=== PATIENT | male | born 1970 | race Caucasian/White ===

== ENCOUNTER 2016-07-02 08:11 | Emergency (ER) | payer MEDICAID ==
[~2016-07-02] VITALS: Ht 177.8 cm; Wt 83.0 kg
[~2016-07-02 08:11] MED LIST: ALBUPOW26; FLUT250M2; QUET200T30 PO; RISPERIDOL
[2016-07-02] MEDS ORDERED: SODIUM CHLORIDE 0.9% 1,000 ML IV ONE (08:26)
[2016-07-02] MEDS ORDERED: ALBUTEROL SULF 2.5 MG/0.5ML(0.5%) NEB SOLN NEB ONE (08:30)
[2016-07-02] MEDS ORDERED: methylPREDNISolone SOD SUCC 125 MG/2 ML VL IV ONE (08:30)
[2016-07-02] MEDS ORDERED: IPRATROPIUM BROM 0.5 MG/2.5ML INH SOL NEB ONE (08:30)
[2016-07-02 09:12] LABS: BUN/Creatinine Ratio 13.8; Calcium 9.4 mg/dL (8.5-10.1); Magnesium 2.1 mg/dL (1.6-2.6); Potassium 4.2 mmol/L (3.5-5.1)
[2016-07-02 09:37] LABS: Basophils # (auto) 0.1 uL; Eosinophils # (auto) 0.7 uL; Eosinophils % (auto) 9.3 % (0.0-7.0); Hematocrit 47.5 % (41.0-53.0); Hemoglobin 15.9 g/dL (13.5-17.5); Lymphocytes # (auto) 1.7 uL; Mean Corpuscular Hemoglobin 32.7 pg (28.0-32.0); Mean Corpuscular Hgb Conc. 33.4 g/dL (32.0-36.0); Mean Corpuscular Volume 97.8 fL (80.0-100.0); Mean Platelet Volume 8.6 fL (7.4-10.4); Monocytes # (auto) 0.6 uL; Monocytes % (auto) 8.6 % (0.0-12.0); Neutrophils # (auto) 4.2 uL; Neutrophils % (auto) 57.8 % (37.0-80.0); Platelet Count (auto) 239 10^3/uL (140-450); Red Cell Distribution Width 12.4 % (11.6-16.0); White Blood Cell 7.3 10^3/uL (4.4-10.8)
[2016-07-02 09:39] LABS: Basophils % (auto) 0.5 % (0.0-2.0); Lymphocytes % (auto) 23.8 % (10.0-50.0)
[2016-07-02 10:15] VITALS: BP 136/87
[2016-07-02 10:50] LABS: Urine RBC None Seen /hpf (0 - 3)
[2016-07-02 11:23] LABS: Urine Bilirubin Negative (Negative); Urine Blood Negative /uL (Negative); Urine Color Yellow (Yellow); Urine Glucose Normal (Normal); Urine Ketone Negative (Negative); Urine Nitrite Negative (Negative); Urine Urobilinogen Normal (Negative); Urine pH 7.5 (5.0-8.0)
== END 2016-07-02 12:32 | disposition home or self-care (01) ==
LOC: ER 08:11
DX: J45.901 Unspecified asthma with (acute) exacerbation (principal); J20.9 Acute bronchitis, unspecified; E11.9 Type 2 diabetes mellitus without complications; F17.210 Nicotine dependence, cigarettes, uncomplicated
CPT/HCPCS: 36415; 71020; 80048; 81001; 83735; 85025; 85049; 93005; 94644; 94761; 96361; 96374; 99285; J2930

== ENCOUNTER 2016-12-09 17:51 | Emergency (ER) | payer MEDICAID ==
[~2016-12-09] VITALS: Ht 177.8 cm; Wt 79.4 kg
[2016-12-09] MEDS ORDERED: IBUPROFEN 600 MG TAB PO ONE (18:30)
[2016-12-09] MEDS ORDERED: ONDANSETRON HCL 4 MG/2 ML VIAL IV ONE (19:15)
[2016-12-09] MEDS ORDERED: MORPHINE SULFATE 4 MG/ML SYRG IV ONE (19:15)
[2016-12-09 19:47] VITALS: BP 142/98
[2016-12-09] MEDS ORDERED: ETOMIDATE (2MG/ML) 20ML VIAL IV ONE ×2 (20:00→20:06)
== END 2016-12-09 22:00 | disposition home or self-care (01) ==
LOC: ER 17:54
DX: S93.05XA Dislocation of left ankle joint, initial encounter (principal); S82.62XA Displaced fracture of lateral malleolus of left fibula, initial encounter for closed fracture; J45.909 Unspecified asthma, uncomplicated; E11.9 Type 2 diabetes mellitus without complications; F17.210 Nicotine dependence, cigarettes, uncomplicated; W22.8XXA Striking against or struck by other objects, initial encounter; Y93.89 Activity, other specified; Y99.8 Other external cause status; Y92.89 Other specified places as the place of occurrence of the external cause
CPT/HCPCS: 27840; 73600; 96374; 96375; 99152; 99285; J2270; J2405

== ENCOUNTER 2017-03-11 20:59 | Emergency (ER) | payer MEDICAID ==
[~2017-03-11] VITALS: Ht 177.8 cm; Wt 74.8 kg
[2017-03-11 21:27] VITALS: BP 143/99
[2017-03-11] MEDS ORDERED: HYDROmorphone HCL 2 MG/ML VL IM ONE (23:45)
[2017-03-11] MEDS ORDERED: ONDANSETRON HCL 4 MG/2 ML VIAL IM ONE (23:45)
== END 2017-03-12 00:36 | disposition home or self-care (01) ==
LOC: ER 21:09
DX: S96.912A Strain of unspecified muscle and tendon at ankle and foot level, left foot, initial encounter (principal); J45.909 Unspecified asthma, uncomplicated; E11.9 Type 2 diabetes mellitus without complications; F17.210 Nicotine dependence, cigarettes, uncomplicated; Z79.899 Other long term (current) drug therapy; W18.39XA Other fall on same level, initial encounter; Y93.89 Activity, other specified; Y92.89 Other specified places as the place of occurrence of the external cause; Y99.8 Other external cause status
CPT/HCPCS: 73610; 96372; 99284; J1170; J2405

== ENCOUNTER 2017-07-17 18:58 | Inpatient (IN) | payer MEDICAID ==
[~2017-07-17] VITALS: Ht 170.2 cm; Wt 87.1 kg
[~2017-07-17 18:58] MED LIST changes: -RISPERIDOL; +RISPERIDOL PO
[2017-07-17] MEDS ORDERED: SODIUM CHLORIDE 0.9% 1,000 ML IV ONE (19:10)
[2017-07-17 19:38] LABS: Eosinophils # (auto) 0.2 uL; Monocytes # (auto) 0.4 uL; Red Cell Distribution Width 13.5 % (11.8-14.3); White Blood Cell 4.9 10^3/uL (4.4-10.8)
[2017-07-17 19:40] LABS: Basophils # (auto) 0.1 uL; Basophils % (auto) 1.5 % (0.0-2.0); Eosinophils % (auto) 3.6 % (0.0-7.0); Hematocrit 48.1 % (41.0-53.0); Hemoglobin 16.6 g/dL (13.5-17.5); Lymphocytes # (auto) 1.5 uL; Lymphocytes % (auto) 30.8 % (10.0-50.0); Mean Corpuscular Hgb Conc. 34.6 g/dL (32.0-36.0); Mean Corpuscular Volume 101.1 fL (80.0-100.0); Monocytes % (auto) 7.9 % (0.0-12.0); Neutrophils # (auto) 2.7 uL; Neutrophils % (auto) 56.2 % (37.0-80.0); Nucleated Red Blood Cells % 0.1 %; Platelet Count (auto) 157 10^3/uL (140-450); Red Blood Cells 4.76 10^6/uL (4.5-5.90)
[2017-07-17] MEDS ORDERED: MORPHINE SULFATE 4 MG/ML SYR/VIAL IV ONE (19:45)
[2017-07-17] MEDS ORDERED: ONDANSETRON HCL 4 MG/2 ML VIAL IV ONE (19:45)
[2017-07-17 19:55] LABS: Albumin 3.9 g/dL (3.4-5.0); BUN/Creatinine Ratio 10.5; Bilirubin, Total 0.7 mg/dL (0.2-1.0); Calcium 8.2 mg/dL (8.5-10.1); Potassium 4.1 mmol/L (3.5-5.1); Total Protein 7.8 g/dL (6.4-8.2)
[2017-07-17 19:56] LABS: INR 0.9 (0.9-1.15); Partial Thromboplastin Time 28.9 sec (22.64-33.71); Prothrombin Time 9.8 sec (9.37-12.3)
[2017-07-17] MEDS ORDERED: ACETAMINOPHEN 500 MG TAB PO PRN (20:45)
[2017-07-17] MEDS ORDERED: ONDANSETRON HCL 4 MG/2 ML VIAL IV PRN (20:45)
[2017-07-17 21:25] LABS: Urine Bacteria NONE SEEN /hpf (None Seen); Urine Blood Negative /uL (Negative); Urine Specific Gravity 1.005 (1.001-1.035); Urine WBC <1 /hpf (0 - 3)
[2017-07-17] MEDS ORDERED: clonazePAM 0.5 MG TAB PO PRN (21:30)
[2017-07-17] MEDS ORDERED: THIAMINE HCL 100 MG/ML 2ML VIAL IV ONE (21:30)
[2017-07-17] MEDS ORDERED: LORazepam 2MG/ML-1ML VIAL IV PRN (21:30)
[2017-07-17] MEDS: MORPHINE SULFATE 4 MG/ML SYR/VIAL IV PRN (22:04)
[2017-07-17 23:16] VITALS: BP 154/84
[2017-07-18] VITALS (7 sets, daily range): BP systolic 121–161; BP diastolic 70–98
[2017-07-18] MEDS: HYDROcodone-ACET 5/325MG TAB PO PRN ×4 (00:40→21:00)
[2017-07-18] MEDS: MORPHINE SULFATE 4 MG/ML SYR/VIAL IV PRN ×5 (05:15→23:10)
[2017-07-18 05:43] LABS: Basophils # (auto) 0.1 uL; Basophils % (auto) 0.9 % (0.0-2.0); Eosinophils # (auto) 0.2 uL; Eosinophils % (auto) 2.7 % (0.0-7.0); Hematocrit 44.7 % (41.0-53.0); Hemoglobin 15.1 g/dL (13.5-17.5); Mean Corpuscular Hgb Conc. 33.7 g/dL (32.0-36.0); Mean Corpuscular Volume 100.8 fL (80.0-100.0); Monocytes # (auto) 0.8 uL; Monocytes % (auto) 10.2 % (0.0-12.0); Neutrophils # (auto) 4.4 uL; Neutrophils % (auto) 59.2 % (37.0-80.0); Nucleated Red Blood Cells % 0.1 %; Platelet Count (auto) 137 10^3/uL (140-450); Red Blood Cells 4.44 10^6/uL (4.5-5.90); White Blood Cell 7.4 10^3/uL (4.4-10.8)
[2017-07-18 06:00] LABS: BUN/Creatinine Ratio 10.8; Calcium 7.9 mg/dL (8.5-10.1); Potassium 4.4 mmol/L (3.5-5.1)
[2017-07-18] MEDS: buPROPion HCL 75 MG TAB PO SCH ×2 (06:13→10:02)
[2017-07-18] MEDS: THIAMINE HCL 100 MG/ML 2ML VIAL IV SCH (10:02)
[2017-07-18] MEDS: NICOTINE 21MG/24 HR TOPICAL PATCH TD SCH (12:07)
[2017-07-18] MEDS: chlordiazePOXIDE HCL 25 MG CAP PO PRN (16:15)
[2017-07-19] MEDS: HYDROcodone-ACET 5/325MG TAB PO PRN ×5 (01:58→23:44)
[2017-07-19 05:00] VITALS: BP 142/98
[2017-07-19] MEDS: MORPHINE SULFATE 4 MG/ML SYR/VIAL IV PRN ×4 (05:29→21:39)
[2017-07-19 05:48] LABS: Albumin 3.6 g/dL (3.4-5.0); BUN/Creatinine Ratio 19.7; Bilirubin, Total 1.8 mg/dL (0.2-1.0); Calcium 8.8 mg/dL (8.5-10.1); Total Protein 7.1 g/dL (6.4-8.2)
[2017-07-19 05:51] LABS: Eosinophils # (auto) 0.1 uL; Mean Corpuscular Hemoglobin 34.8 pg (28.0-32.0); Mean Corpuscular Hgb Conc. 34.7 g/dL (32.0-36.0)
[2017-07-19 05:53] LABS: Basophils # (auto) 0.1 uL; Basophils % (auto) 0.9 % (0.0-2.0); Eosinophils % (auto) 2.1 % (0.0-7.0); Hematocrit 43.7 % (41.0-53.0); Hemoglobin 15.2 g/dL (13.5-17.5); Lymphocytes # (auto) 1.3 uL; Lymphocytes % (auto) 23.1 % (10.0-50.0); Mean Corpuscular Volume 100.2 fL (80.0-100.0); Monocytes # (auto) 0.7 uL; Monocytes % (auto) 12.4 % (0.0-12.0); Neutrophils # (auto) 3.6 uL; Neutrophils % (auto) 61.5 % (37.0-80.0); Nucleated Red Blood Cells % 0.1 %; Platelet Count (auto) 116 10^3/uL (140-450); Red Blood Cells 4.36 10^6/uL (4.5-5.90); Red Cell Distribution Width 13.2 % (11.8-14.3); White Blood Cell 5.8 10^3/uL (4.4-10.8)
[2017-07-19] MEDS: buPROPion HCL 75 MG TAB PO SCH ×2 (06:30→18:52)
[2017-07-19 09:41] VITALS: BP 157/120
[2017-07-19] MEDS: NICOTINE 21MG/24 HR TOPICAL PATCH TD SCH (10:27)
[2017-07-19] MEDS: chlordiazePOXIDE HCL 25 MG CAP PO PRN ×2 (10:28→22:39)
[2017-07-19] MEDS: THIAMINE HCL 100 MG/ML 2ML VIAL IV SCH (10:28)
[2017-07-19] MEDS ORDERED: PROPRANOLOL HCL 20 MG TAB PO ONE (11:00)
[2017-07-19 13:21] VITALS: BP 152/107
[2017-07-19 17:26] VITALS: BP 167/105
[2017-07-19] MEDS: PROPRANOLOL HCL 20 MG TAB PO SCH (21:45)
[2017-07-19 22:00] VITALS: BP 132/85
[2017-07-20] MEDS: MORPHINE SULFATE 4 MG/ML SYR/VIAL IV PRN ×4 (02:28→19:53)
[2017-07-20] MEDS: HYDROcodone-ACET 5/325MG TAB PO PRN ×3 (04:42→13:43)
[2017-07-20 05:00] VITALS: BP 131/85
[2017-07-20] MEDS: buPROPion HCL 75 MG TAB PO SCH ×2 (06:45→18:30)
[2017-07-20 07:05] LABS: Albumin 3.6 g/dL (3.4-5.0); Calcium 9.4 mg/dL (8.5-10.1); Potassium 4.3 mmol/L (3.5-5.1)
[2017-07-20 07:08] LABS: BUN/Creatinine Ratio 21.4
[2017-07-20 07:11] LABS: Bilirubin, Total 1.6 mg/dL (0.2-1.0); Total Protein 7.2 g/dL (6.4-8.2)
[2017-07-20 08:00] VITALS: BP 155/100
[2017-07-20 09:00] VITALS: BP 155/100
[2017-07-20] MEDS: THIAMINE HCL 100 MG/ML 2ML VIAL IV SCH (09:26)
[2017-07-20] MEDS: NICOTINE 21MG/24 HR TOPICAL PATCH TD SCH ×2 (09:26→09:32)
[2017-07-20] MEDS: PROPRANOLOL HCL 20 MG TAB PO SCH ×2 (09:26→21:52)
[2017-07-20] MEDS: chlordiazePOXIDE HCL 25 MG CAP PO PRN ×3 (09:28→20:54)
[2017-07-20] MEDS: clonazePAM 0.5 MG TAB PO PRN ×2 (10:56→21:52)
[2017-07-20 17:00] VITALS: BP 141/44
[2017-07-20 18:42] VITALS: BP 155/100
[2017-07-20 22:00] VITALS: BP 142/77
[2017-07-21] MEDS ORDERED: HALOPERIDOL LACTATE 5 MG/ML INJ VIAL IM ONE (02:00)
[2017-07-21] MEDS: LABETALOL HCL 5 MG/ML ML 20ML VIAL IV PRN (02:28)
[2017-07-21] MEDS: chlordiazePOXIDE HCL 25 MG CAP PO PRN (03:41)
[2017-07-21 05:00] VITALS: BP 123/93
[2017-07-21] MEDS: buPROPion HCL 75 MG TAB PO SCH ×2 (06:11→17:29)
[2017-07-21 08:00] VITALS: BP 112/63
[2017-07-21 09:00] VITALS: BP 112/63
[2017-07-21] MEDS: MORPHINE SULFATE 4 MG/ML SYR/VIAL IV PRN ×3 (09:46→21:53)
[2017-07-21] MEDS: PROPRANOLOL HCL 20 MG TAB PO SCH ×2 (09:47→21:53)
[2017-07-21] MEDS: NICOTINE 21MG/24 HR TOPICAL PATCH TD SCH (09:47)
[2017-07-21] MEDS: THIAMINE INJ 100 MG, MULTIPLE VITAMIN 10 ML, FOLIC ACID 1 MG, MAGNESIUM SULF SDV 50% 8 ... IV SCH ×5 (12:10)
[2017-07-21] MEDS ORDERED: HALOPERIDOL LACTATE 5 MG/ML INJ VIAL IM PRN (14:00)
[2017-07-21 17:00] VITALS: BP 130/81
[2017-07-21 20:00] VITALS: BP 119/67
[2017-07-21 20:55] VITALS: BP 119/67
[2017-07-22] VITALS (7 sets, daily range): BP systolic 114–148; BP diastolic 69–84
[2017-07-22] MEDS: MORPHINE SULFATE 4 MG/ML SYR/VIAL IV PRN ×4 (04:24→21:17)
[2017-07-22 05:54] LABS: Basophils # (auto) 0 uL; Eosinophils # (auto) 0.2 uL; Hemoglobin 13.4 g/dL (13.5-17.5); Lymphocytes # (auto) 1.3 uL; Monocytes # (auto) 0.9 uL; Nucleated Red Blood Cells % 0.1 %
[2017-07-22 06:03] LABS: Basophils % (auto) 0.5 % (0.0-2.0); Eosinophils % (auto) 3.6 % (0.0-7.0); Hematocrit 38.4 % (41.0-53.0); Lymphocytes % (auto) 21.8 % (10.0-50.0); Mean Corpuscular Hemoglobin 35.4 pg (28.0-32.0); Mean Corpuscular Hgb Conc. 34.9 g/dL (32.0-36.0); Mean Corpuscular Volume 101.6 fL (80.0-100.0); Monocytes % (auto) 15.2 % (0.0-12.0); Neutrophils # (auto) 3.4 uL; Neutrophils % (auto) 58.9 % (37.0-80.0); Platelet Count (auto) 126 10^3/uL (140-450); Red Blood Cells 3.78 10^6/uL (4.5-5.90); Red Cell Distribution Width 12.9 % (11.8-14.3); White Blood Cell 5.8 10^3/uL (4.4-10.8)
[2017-07-22 06:30] LABS: Albumin 3.1 g/dL (3.4-5.0); Calcium 8.4 mg/dL (8.5-10.1); Magnesium 2.6 mg/dL (1.6-2.6); Potassium 3.7 mmol/L (3.5-5.1); Total Protein 6.5 g/dL (6.4-8.2)
[2017-07-22] MEDS: buPROPion HCL 75 MG TAB PO SCH ×2 (07:03→18:31)
[2017-07-22] MEDS: HYDROcodone-ACET 5/325MG TAB PO PRN ×4 (08:01→23:58)
[2017-07-22] MEDS: PROPRANOLOL HCL 20 MG TAB PO SCH ×2 (09:09→21:16)
[2017-07-22] MEDS: NICOTINE 21MG/24 HR TOPICAL PATCH TD SCH (09:10)
[2017-07-22] MEDS ORDERED: cefTRIAXone 1GM/10ml IVPUSH 10 ML IV ONE (09:45)
[2017-07-22] MEDS: THIAMINE INJ 100 MG, MULTIPLE VITAMIN 10 ML, FOLIC ACID 1 MG, MAGNESIUM SULF SDV 50% 8 ... IV SCH ×5 (11:53)
[2017-07-23] MEDS: clonazePAM 0.5 MG TAB PO PRN ×2 (01:02→23:06)
[2017-07-23] MEDS: MORPHINE SULFATE 4 MG/ML SYR/VIAL IV PRN ×4 (04:27→20:14)
[2017-07-23 05:22] LABS: Basophils # (auto) 0.1 uL; Mean Corpuscular Volume 101.2 fL (80.0-100.0); Monocytes # (auto) 0.9 uL; Nucleated Red Blood Cells % 0.1 %
[2017-07-23 05:24] LABS: Basophils % (auto) 1.1 % (0.0-2.0); Eosinophils # (auto) 0.3 uL; Eosinophils % (auto) 4.6 % (0.0-7.0); Hematocrit 40.1 % (41.0-53.0); Hemoglobin 13.7 g/dL (13.5-17.5); Lymphocytes # (auto) 1.4 uL; Lymphocytes % (auto) 26.2 % (10.0-50.0); Mean Corpuscular Hemoglobin 34.6 pg (28.0-32.0); Mean Corpuscular Hgb Conc. 34.2 g/dL (32.0-36.0); Monocytes % (auto) 16.8 % (0.0-12.0); Neutrophils # (auto) 2.8 uL; Neutrophils % (auto) 51.3 % (37.0-80.0); Platelet Count (auto) 145 10^3/uL (140-450); Red Blood Cells 3.96 10^6/uL (4.5-5.90); Red Cell Distribution Width 13.2 % (11.8-14.3); White Blood Cell 5.5 10^3/uL (4.4-10.8)
[2017-07-23 05:44] LABS: Albumin 3.2 g/dL (3.4-5.0); BUN/Creatinine Ratio 12.8; Calcium 8.8 mg/dL (8.5-10.1); Potassium 4.2 mmol/L (3.5-5.1)
[2017-07-23 05:47] LABS: Bilirubin, Total 0.8 mg/dL (0.2-1.0); Total Protein 6.7 g/dL (6.4-8.2)
[2017-07-23 05:51] VITALS: BP 140/80
[2017-07-23] MEDS: buPROPion HCL 75 MG TAB PO SCH ×2 (06:52→18:33)
[2017-07-23] MEDS: HYDROcodone-ACET 5/325MG TAB PO PRN ×4 (06:53→21:40)
[2017-07-23 09:00] VITALS: BP 140/89
[2017-07-23] MEDS: PROPRANOLOL HCL 20 MG TAB PO SCH ×2 (09:39→21:39)
[2017-07-23] MEDS: NICOTINE 21MG/24 HR TOPICAL PATCH TD SCH (09:39)
[2017-07-23] MEDS: cefTRIAXone 1GM/10ml IVPUSH 10 ML IV SCH (09:39)
[2017-07-23] MEDS: ALBUTEROL SULF 2.5 MG/0.5ML(0.5%) NEB SOLN NEB PRN ×2 (10:29→17:47)
[2017-07-23 13:00] VITALS: BP 136/71
[2017-07-23] MEDS: THIAMINE INJ 100 MG, MULTIPLE VITAMIN 10 ML, FOLIC ACID 1 MG, MAGNESIUM SULF SDV 50% 8 ... IV SCH ×5 (14:22)
[2017-07-23 17:01] VITALS: BP 132/73
[2017-07-24] MEDS: MORPHINE SULFATE 4 MG/ML SYR/VIAL IV PRN ×5 (00:02→14:22)
[2017-07-24 01:40] VITALS: BP 138/72
[2017-07-24] MEDS: HYDROcodone-ACET 5/325MG TAB PO PRN (02:24)
[2017-07-24] MEDS: LABETALOL HCL 5 MG/ML ML 20ML VIAL IV PRN ×4 (05:02→08:21)
[2017-07-24 05:30] VITALS: BP 155/101
[2017-07-24 05:31] VITALS: BP 154/101
[2017-07-24] MEDS: buPROPion HCL 75 MG TAB PO SCH (07:00)
[2017-07-24 09:00] VITALS: BP 160/85
[2017-07-24] MEDS: cefTRIAXone 1GM/10ml IVPUSH 10 ML IV SCH (09:30)
[2017-07-24] MEDS: PROPRANOLOL HCL 20 MG TAB PO SCH (09:48)
[2017-07-24] MEDS: NICOTINE 21MG/24 HR TOPICAL PATCH TD SCH (10:00)
[2017-07-24] MEDS ORDERED: ceFAZolin 1GM/50ML 50 ML IV ONE (10:25)
[2017-07-24] MEDS ORDERED: LIDOCAINE 1% HCL (LOCAL ANESTH.) INJ 20ML MDV ONE (10:35)
[2017-07-24] MEDS ORDERED: BUPIVACAINE W/ EPINEPH 0.25% INJ 50ML MDV ONE (10:35)
[2017-07-24] MEDS ORDERED: BUPIVACAINE 0.25% INJ 50ML VIAL ONE (10:35)
[2017-07-24] MEDS ORDERED: ROCURONIUM 10MG/ML 10ML VIAL IV ONE (11:45)
[2017-07-24] MEDS ORDERED: ONDANSETRON HCL 4 MG/2 ML VIAL ONE (11:45)
[2017-07-24] MEDS ORDERED: MEPERIDINE HCL (50 MG/ML) 1 ML VIAL ONE (11:45)
[2017-07-24] MEDS ORDERED: SODIUM CHLORIDE LOCK 10 ML ONE (11:45)
[2017-07-24] MEDS ORDERED: fentaNYL CITRATE 100 MCG/2 ML VL ONE (11:45)
[2017-07-24] MEDS ORDERED: PROPOFOL 10 MG/ML 20 ML IV ONE (11:45)
[2017-07-24] MEDS ORDERED: MIDAZOLAM HCL 1MG/1ML-2 ML VIAL ONE (11:45)
[2017-07-24] MEDS: THIAMINE INJ 100 MG, MULTIPLE VITAMIN 10 ML, FOLIC ACID 1 MG, MAGNESIUM SULF SDV 50% 8 ... IV SCH ×5 (12:00)
[2017-07-24] MEDS ORDERED: NEOSTIGMINE 1 MG/ML INJ (10mg/10ML VIAL) ONE (12:28)
[2017-07-24] MEDS ORDERED: GLYCOPYRROLATE 0.2 MG/ML 1ML VIAL ONE (12:28)
[2017-07-24] MEDS ORDERED: KETOROLAC TROMETH 30 MG/ML 1ML VIAL IV ONE (13:15)
[2017-07-24] MEDS ORDERED: METOCLOPRAMIDE HCL 5MG/ml INJ 2ml VIAL IV PRN (13:15)
[2017-07-24] MEDS ORDERED: MORPHINE SULFATE 4 MG/ML SYR/VIAL ONE (13:21)
[2017-07-24 13:51] VITALS: BP 142/95
[2017-07-24] MEDS ORDERED: MORPHINE SULFATE 4 MG/ML SYR/VIAL IV PRN (14:00)
[2017-07-24] MEDS ORDERED: THIAMINE HCL 100 MG TAB PO SCH (15:15)
[2017-07-25] MEDS ORDERED: [UNRECOGNIZED DRUG - OTHER] IV SCH (12:00)
[2017-07-25] MEDS ORDERED: FOLIC ACID IV SCH (12:00)
[2017-07-25] MEDS ORDERED: MULTIPLE VITAMIN IV SCH (12:00)
[2017-07-25] MEDS ORDERED: MAGNESIUM SULF IV SCH (12:00)
== END 2017-07-24 17:22 | disposition home or self-care (01) | DRG 342 ==
LOC: ER 18:58 → OVERFLOW 18:59 → WEST WING 23:51
PROVIDERS: ADMIT Nurse Practitioner Family; ATTEND Internal Medicine
PROC: 0QSGXZZ Reposition Right Tibia, External Approach (ICD-10-PCS; 2017-07-24)
PROC: 0QSJXZZ Reposition Right Fibula, External Approach (ICD-10-PCS; principal; 2017-07-24 12:02)
DX: S82.851A Displaced trimalleolar fracture of right lower leg, initial encounter for closed fracture (principal); G93.41 Metabolic encephalopathy; F10.231 Alcohol dependence with withdrawal delirium; F31.9 Bipolar disorder, unspecified; J45.909 Unspecified asthma, uncomplicated; K76.9 Liver disease, unspecified; F17.210 Nicotine dependence, cigarettes, uncomplicated; W01.0XXA Fall on same level from slipping, tripping and stumbling without subsequent striking against object, initial encounter; F29 Unspecified psychosis not due to a substance or known physiological condition; F41.9 Anxiety disorder, unspecified; R79.89 Other specified abnormal findings of blood chemistry; E44.1 Mild protein-calorie malnutrition; Z68.30 Body mass index [BMI] 30.0-30.9, adult; Z79.899 Other long term (current) drug therapy; Z80.1 Family history of malignant neoplasm of trachea, bronchus and lung; Z81.8 Family history of other mental and behavioral disorders; Z83.3 Family history of diabetes mellitus; Y92.89 Other specified places as the place of occurrence of the external cause; Y93.89 Activity, other specified; Y99.8 Other external cause status
CPT/HCPCS: 36415; 70450; 71045; 73600; 76000; 80048; 80053; 81001; 83735; 84443; 85025; 85610; 85730; 94640; 94761; 95819; 96361; 96374; 96375; J0690; J1885; J2001; J2250; J2405; J2704; J3490

== ENCOUNTER 2017-08-04 15:52 | Inpatient (IN) | payer MEDICAID ==
[~2017-08-04] VITALS: Ht 175.3 cm; Wt 85.3 kg
[2017-08-04] MEDS ORDERED: SODIUM CHLORIDE 0.9% 1,000 ML IV ONE (19:45)
[2017-08-04] MEDS ORDERED: MORPHINE SULFATE 4 MG/ML SYR/VIAL IV ONE (20:00)
[2017-08-04] MEDS ORDERED: ONDANSETRON HCL 4 MG/2 ML VIAL IV ONE (20:00)
[2017-08-04 20:18] LABS: Basophils # (auto) 0 uL; Basophils % (auto) 0.4 % (0.0-2.0); Eosinophils # (auto) 0.4 uL; Eosinophils % (auto) 6.4 % (0.0-7.0); Hematocrit 42.9 % (41.0-53.0); Hemoglobin 14.4 g/dL (13.5-17.5); Lymphocytes # (auto) 2.3 uL; Lymphocytes % (auto) 38.5 % (10.0-50.0); Mean Corpuscular Hemoglobin 33.7 pg (28.0-32.0); Mean Corpuscular Hgb Conc. 33.4 g/dL (32.0-36.0); Mean Corpuscular Volume 100.7 fL (80.0-100.0); Monocytes # (auto) 0.4 uL; Neutrophils # (auto) 2.8 uL; Neutrophils % (auto) 47.7 % (37.0-80.0); Nucleated Red Blood Cells % 0.2 %; Platelet Count (auto) 316 10^3/uL (140-450); Red Blood Cells 4.26 10^6/uL (4.5-5.90); Red Cell Distribution Width 13.4 % (11.8-14.3)
[2017-08-04 20:32] LABS: INR 0.9 (0.9-1.15); Partial Thromboplastin Time 29.2 sec (22.64-33.71); Prothrombin Time 9.8 sec (9.37-12.3)
[2017-08-04 20:33] LABS: Albumin 3.6 g/dL (3.4-5.0); BUN/Creatinine Ratio 10.5; Bilirubin, Total 0.3 mg/dL (0.2-1.0); Calcium 8.5 mg/dL (8.5-10.1); Potassium 4.5 mmol/L (3.5-5.1); Total Protein 7.6 g/dL (6.4-8.2)
[2017-08-04] MEDS ORDERED: ALBUTEROL SULF 2.5 MG/0.5ML(0.5%) NEB SOLN NEB PRN (22:15)
[2017-08-04] MEDS ORDERED: clonazePAM 0.5 MG TAB PO PRN (22:15)
[2017-08-05] VITALS (8 sets, daily range): BP systolic 122–161; BP diastolic 76–95
[2017-08-05] MEDS ORDERED: chlordiazePOXIDE HCL 25 MG CAP PO PRN
[2017-08-05] MEDS: MORPHINE SULFATE 4 MG/ML SYR/VIAL IV PRN ×9 (00:30→20:28)
[2017-08-05] MEDS ORDERED: CLON05T PO (03:29)
[2017-08-05] MEDS ORDERED: BUPRTAB3 PO (03:29)
[2017-08-05 06:46] LABS: Basophils # (auto) 0.1 uL; Basophils % (auto) 2.3 % (0.0-2.0); Eosinophils # (auto) 0.3 uL; Hematocrit 42.7 % (41.0-53.0); Hemoglobin 14.4 g/dL (13.5-17.5); Lymphocytes # (auto) 1.6 uL; Lymphocytes % (auto) 29.8 % (10.0-50.0); Mean Corpuscular Hemoglobin 33.7 pg (28.0-32.0); Mean Corpuscular Hgb Conc. 33.7 g/dL (32.0-36.0); Mean Corpuscular Volume 100.1 fL (80.0-100.0); Monocytes # (auto) 0.5 uL; Monocytes % (auto) 8.4 % (0.0-12.0); Neutrophils # (auto) 2.9 uL; Neutrophils % (auto) 53.5 % (37.0-80.0); Nucleated Red Blood Cells % 0.1 %; Platelet Count (auto) 294 10^3/uL (140-450); Red Blood Cells 4.27 10^6/uL (4.5-5.90); Red Cell Distribution Width 13.3 % (11.8-14.3); White Blood Cell 5.5 10^3/uL (4.4-10.8)
[2017-08-05] MEDS: LEVOTHYROXINE SODIUM 100 MCG TAB PO SCH (06:51)
[2017-08-05 06:56] LABS: BUN/Creatinine Ratio 14.1; Calcium 8.5 mg/dL (8.5-10.1); Potassium 4.2 mmol/L (3.5-5.1)
[2017-08-05] MEDS ORDERED: THIAMINE HCL 100 MG/ML 2ML VIAL IV SCH (10:00)
[2017-08-05] MEDS ORDERED: cefTRIAXone 1GM/10ml IVPUSH 10 ML IV ONE (10:15)
[2017-08-05] MEDS: THIAMINE INJ 100 MG, MULTIPLE VITAMIN 10 ML, FOLIC ACID 1 MG, MAGNESIUM SULF SDV 50% 8 ... IV SCH ×5 (10:29)
[2017-08-05] MEDS ORDERED: LIDOCAINE W/ EPINEPHRINE 2% INJ 20ML VIAL ONE (11:54)
[2017-08-05] MEDS ORDERED: ROPIVACAINE 0.5% (5MG/ML) 20ML AMPULE IJ ONE (11:54)
[2017-08-05] MEDS ORDERED: MIDAZOLAM HCL 1MG/1ML-2 ML VIAL ONE (12:02)
[2017-08-05] MEDS ORDERED: ceFAZolin 1GM/50ML 50 ML IV ONE (12:07)
[2017-08-05] MEDS ORDERED: MEPERIDINE HCL (50 MG/ML) 1 ML VIAL ONE (12:33)
[2017-08-05] MEDS ORDERED: fentaNYL CITRATE 100 MCG/2 ML VL ONE (12:33)
[2017-08-05] MEDS ORDERED: PROPOFOL 10 MG/ML 20 ML IV ONE (12:42)
[2017-08-05] MEDS ORDERED: KETOROLAC TROMETH 30 MG/ML 1ML VIAL ONE ×2 (12:42→15:19)
[2017-08-05] MEDS ORDERED: DEXAMETHASONE SOD PHOS 10MG/1ML VIAL INJ ONE (12:42)
[2017-08-05] MEDS ORDERED: KETOROLAC TROMETH 30 MG/ML 1ML VIAL IV ONE ×2 (13:15→15:30)
[2017-08-05] MEDS ORDERED: ONDANSETRON HCL 4 MG/2 ML VIAL IV ONE (13:15)
[2017-08-05] MEDS ORDERED: LABETALOL HCL 5 MG/ML 4ML SYRINGE IV PRN (13:15)
[2017-08-05] MEDS ORDERED: MIDAZOLAM HCL 1MG/1ML-2 ML VIAL IV PRN (13:15)
[2017-08-05] MEDS ORDERED: ePHEDrine SULFATE 50 MG/ML AMP IV PRN (13:15)
[2017-08-05] MEDS ORDERED: MORPHINE SULFATE 4 MG/ML SYR/VIAL IV PRN (13:15)
[2017-08-05] MEDS ORDERED: MORPHINE SULFATE 4 MG/ML SYR/VIAL IV ONE (14:00)
[2017-08-05] MEDS: MULTIPLE VITAMIN TAB PO SCH (16:25)
[2017-08-05] MEDS: ceFAZolin 1GM/50ML 50 ML IV SCH (18:21)
[2017-08-06] MEDS: ceFAZolin 1GM/50ML 50 ML IV SCH ×4 (00:10→17:30)
[2017-08-06] MEDS: MORPHINE SULFATE 4 MG/ML SYR/VIAL IV PRN ×7 (01:22→23:04)
[2017-08-06] MEDS: LORazepam 2MG/ML-1ML VIAL IV PRN ×2 (03:08→09:20)
[2017-08-06 05:19] VITALS: BP 150/82
[2017-08-06] MEDS: LEVOTHYROXINE SODIUM 100 MCG TAB PO SCH (06:21)
[2017-08-06 06:35] LABS: Basophils # (auto) 0.1 uL; Basophils % (auto) 1.1 % (0.0-2.0); Eosinophils # (auto) 0.1 uL; Eosinophils % (auto) 1.7 % (0.0-7.0); Hematocrit 38.8 % (41.0-53.0); Hemoglobin 13.4 g/dL (13.5-17.5); Lymphocytes # (auto) 0.8 uL; Lymphocytes % (auto) 11.2 % (10.0-50.0); Mean Corpuscular Hemoglobin 33.9 pg (28.0-32.0); Mean Corpuscular Hgb Conc. 34.6 g/dL (32.0-36.0); Mean Corpuscular Volume 97.8 fL (80.0-100.0); Monocytes # (auto) 0.7 uL; Monocytes % (auto) 9.3 % (0.0-12.0); Neutrophils # (auto) 5.7 uL; Neutrophils % (auto) 76.7 % (37.0-80.0); Nucleated Red Blood Cells % 0.1 %; Platelet Count (auto) 235 10^3/uL (140-450); Red Blood Cells 3.97 10^6/uL (4.5-5.90); Red Cell Distribution Width 13.2 % (11.8-14.3); White Blood Cell 7.4 10^3/uL (4.4-10.8)
[2017-08-06 06:49] LABS: Albumin 3.2 g/dL (3.4-5.0); BUN/Creatinine Ratio 11.4; Calcium 8.5 mg/dL (8.5-10.1); Potassium 4.1 mmol/L (3.5-5.1)
[2017-08-06 06:51] LABS: Bilirubin, Total 0.8 mg/dL (0.2-1.0); Total Protein 6.4 g/dL (6.4-8.2)
[2017-08-06 09:00] VITALS: BP 135/93
[2017-08-06] MEDS ORDERED: cefTRIAXone 1GM/10ml IVPUSH 10 ML IV SCH (09:00)
[2017-08-06] MEDS ORDERED: ENOXAPARIN SOD 80 MG/0.8ML SYRINGE SC ONE (10:00)
[2017-08-06] MEDS: HYDROcodone-ACET 10/325MG TAB PO PRN ×3 (10:20→20:46)
[2017-08-06] MEDS: MULTIPLE VITAMIN TAB PO SCH (10:23)
[2017-08-06 13:00] VITALS: BP 149/91
[2017-08-06] MEDS: THIAMINE INJ 100 MG, MULTIPLE VITAMIN 10 ML, FOLIC ACID 1 MG, MAGNESIUM SULF SDV 50% 8 ... IV SCH ×5 (15:06)
[2017-08-06 17:00] VITALS: BP 152/97
[2017-08-06 22:00] VITALS: BP 156/98
[2017-08-07] MEDS: ceFAZolin 1GM/50ML 50 ML IV SCH ×2 (00:11→06:18)
[2017-08-07] MEDS: HYDROcodone-ACET 10/325MG TAB PO PRN ×2 (02:57→08:09)
[2017-08-07 05:30] VITALS: BP 141/93
[2017-08-07] MEDS: LEVOTHYROXINE SODIUM 100 MCG TAB PO SCH (06:18)
[2017-08-07] MEDS: MORPHINE SULFATE 4 MG/ML SYR/VIAL IV PRN (06:18)
[2017-08-07 06:44] LABS: Basophils # (auto) 0.1 uL; Basophils % (auto) 1.8 % (0.0-2.0); Eosinophils # (auto) 0.1 uL; Eosinophils % (auto) 3.2 % (0.0-7.0); Hematocrit 39.7 % (41.0-53.0); Hemoglobin 13.7 g/dL (13.5-17.5); Lymphocytes # (auto) 0.8 uL; Lymphocytes % (auto) 18.4 % (10.0-50.0); Mean Corpuscular Hemoglobin 33.7 pg (28.0-32.0); Mean Corpuscular Hgb Conc. 34.6 g/dL (32.0-36.0); Mean Corpuscular Volume 97.4 fL (80.0-100.0); Monocytes # (auto) 0.6 uL; Monocytes % (auto) 12.6 % (0.0-12.0); Neutrophils # (auto) 2.9 uL; Platelet Count (auto) 178 10^3/uL (140-450); Red Blood Cells 4.07 10^6/uL (4.5-5.90); Red Cell Distribution Width 12.9 % (11.8-14.3); White Blood Cell 4.5 10^3/uL (4.4-10.8)
[2017-08-07 07:11] LABS: Albumin 3.1 g/dL (3.4-5.0); BUN/Creatinine Ratio 9.1; Bilirubin, Total 0.8 mg/dL (0.2-1.0); Calcium 8.4 mg/dL (8.5-10.1); Potassium 3.8 mmol/L (3.5-5.1); Total Protein 6.8 g/dL (6.4-8.2)
[2017-08-07 08:18] VITALS: BP 145/103
== END 2017-08-07 09:54 | disposition home or self-care (01) | DRG 313 ==
LOC: ER 15:54 → OVERFLOW 15:55 → WEST WING 22:34
PROVIDERS: ADMIT Nurse Practitioner Family; ATTEND Internal Medicine
PROC: 0QUG0KZ Supplement Right Tibia with Nonautologous Tissue Substitute, Open Approach (ICD-10-PCS; 2017-08-05)
PROC: 0QSG04Z Reposition Right Tibia with Internal Fixation Device, Open Approach (ICD-10-PCS; principal; 2017-08-05 12:15)
DX: S82.851A Displaced trimalleolar fracture of right lower leg, initial encounter for closed fracture (principal); E44.1 Mild protein-calorie malnutrition; F10.10 Alcohol abuse, uncomplicated; S82.841A Displaced bimalleolar fracture of right lower leg, initial encounter for closed fracture; W19.XXXA Unspecified fall, initial encounter; F17.210 Nicotine dependence, cigarettes, uncomplicated; F31.9 Bipolar disorder, unspecified; J45.909 Unspecified asthma, uncomplicated; Z83.3 Family history of diabetes mellitus; Z80.1 Family history of malignant neoplasm of trachea, bronchus and lung; Y93.89 Activity, other specified; Y92.89 Other specified places as the place of occurrence of the external cause; Y99.8 Other external cause status; Z68.27 Body mass index [BMI] 27.0-27.9, adult; E88.09 Other disorders of plasma-protein metabolism, not elsewhere classified
CPT/HCPCS: 36415; 71045; 73610; 76000; 76937; 80048; 80053; 84443; 85025; 85610; 85730; 87081; 96361; 96374; 96375; 97163; J0690; J1100; J1885; J2250; J2405; J2704

== ENCOUNTER 2018-09-07 06:44 | Emergency (ER) | payer MEDICAID, OTHER ==
[~2018-09-07] VITALS: Ht 157.5 cm; Wt 79.8 kg
[~2018-09-07 06:44] MED LIST changes: -ALBUPOW26; +BUPRTAB3 PO; +CLON05T PO; -FLUT250M2; -QUET200T30 PO; -RISPERIDOL PO
[2018-09-07 08:15] VITALS: BP 142/92
[2018-09-07] MEDS: methylPREDNISolone SOD SUCC 125 MG/2 ML VL IM ONE (09:30)
[2018-09-07] MEDS: diphenhdrAMINE HCL 50 MG/1 ML VL IM ONE (09:30)
== END 2018-09-07 09:57 | disposition home or self-care (01) ==
LOC: ER 06:44
DX: R21 Rash and other nonspecific skin eruption (principal); F17.210 Nicotine dependence, cigarettes, uncomplicated; J45.909 Unspecified asthma, uncomplicated; Z79.899 Other long term (current) drug therapy
CPT/HCPCS: 96372; 99283; J1200; J2930

== ENCOUNTER 2019-05-10 15:23 | Emergency (ER) | payer MEDICAID, OTHER ==
[~2019-05-10] VITALS: Ht 177.8 cm; Wt 80.7 kg
[~2019-05-10 15:23] MED LIST changes: +CLON0.5T11 PO; -CLON05T PO
[2019-05-10] MEDS ORDERED: IBUPROFEN 800 MG TAB PO ONE ×2 (16:35→16:45)
[2019-05-10 20:18] VITALS: BP 146/85
== END 2019-05-10 20:18 | disposition home or self-care (01) ==
LOC: ER 15:29
DX: S99.912A Unspecified injury of left ankle, initial encounter (principal); F17.210 Nicotine dependence, cigarettes, uncomplicated; X58.XXXA Exposure to other specified factors, initial encounter; Y93.89 Activity, other specified; Y99.8 Other external cause status; Y92.89 Other specified places as the place of occurrence of the external cause
CPT/HCPCS: 36415; 73610; 73700; 84550; 93971

== ENCOUNTER 2019-10-19 15:06 | Emergency (ER) | payer MEDICAID ==
[~2019-10-19] VITALS: Ht 177.8 cm; Wt 74.8 kg
[~2019-10-19 15:06] MED LIST changes: -CLON0.5T11 PO; +CLON0.5T3 PO
[2019-10-19] MEDS ORDERED: SODIUM CHLORIDE 0.9% 1,000 ML IV ONE ×3 (15:22→22:45)
[2019-10-19 15:41] LABS: Urine Bacteria NONE SEEN /hpf (None Seen); Urine Blood Negative /uL (Negative); Urine Mucus FEW (None Seen); Urine Specific Gravity 1.006 (1.001-1.035); Urine WBC <1 /hpf (0 - 3)
[2019-10-19 15:54] LABS: Basophils # (auto) 0.1 10 ^3/uL (0-0.2); Basophils % (auto) 1.3 % (0.0-2.0); Eosinophils # (auto) 0.3 10 ^3/uL (0-0.8); Eosinophils % (auto) 4.2 % (0.0-7.0); Hematocrit 44.7 % (41.0-53.0); Hemoglobin 14.9 g/dL (13.5-17.5); Lymphocytes # (auto) 1.6 10 ^3/uL (0.4-5.4); Lymphocytes % (auto) 22.7 % (10.0-50.0); Mean Corpuscular Hemoglobin 30.6 pg (28.0-32.0); Mean Corpuscular Hgb Conc. 33.4 g/dL (32.0-36.0); Mean Corpuscular Volume 91.5 fL (80.0-100.0); Monocytes # (auto) 0.5 10 ^3/uL (0-1.3); Neutrophils # (auto) 4.6 10 ^3/uL (1.6-8.6); Neutrophils % (auto) 64.8 % (37.0-80.0); Platelet Count (auto) 121 10^3/uL (140-450); Red Blood Cells 4.88 10^6/uL (4.5-5.90); Red Cell Distribution Width 15.2 % (11.8-14.3); White Blood Cell 7.1 10^3/uL (4.4-10.8)
[2019-10-19] MEDS ORDERED: KETOROLAC TROMETH 30 MG/ML 1ML VIAL IV ONE (16:00)
[2019-10-19] MEDS ORDERED: ONDANSETRON HCL 4 MG/2 ML VIAL IV ONE (16:00)
[2019-10-19] MEDS: FOLIC ACID 1 MG, MULTIPLE VITAMIN 10 ML, MAGNESIUM SULF SDV 50% 8 MEQ, THIAMINE INJ 100... INJ SCH ×5 (16:08)
[2019-10-19 16:11] LABS: Salicylate < 1.7 mg/dL (2.8-20.0)
[2019-10-19 16:12] LABS: Albumin 3.7 g/dL (3.4-5.0); BUN/Creatinine Ratio 15.6; Magnesium 2.2 mg/dL (1.6-2.6); Potassium 4.2 mmol/L (3.5-5.1)
[2019-10-19 16:15] LABS: Acetaminophen < 2.0 ug/mL (10-30); Bilirubin, Total 0.2 mg/dL (0.2-1.0); Total Protein 7.2 g/dL (6.4-8.2)
[2019-10-19 16:20] LABS: Amphetamine Screen, Urine NEGATIVE (NEGATIVE); Barbiturate Scree,Urine POSITIVE (NEGATIVE); Benzodiazephine Screen, Urine POSITIVE (NEGATIVE); Cannabinoid Screen, Urine NEGATIVE (NEGATIVE); Cocaine Screen, Urine NEGATIVE (NEGATIVE); Opiate Scree,Urine NEGATIVE (NEGATIVE); Phencyclidine Screen, Urine NEGATIVE (NEGATIVE)
[2019-10-19] MEDS ORDERED: HALOPERIDOL LACTATE 5 MG/ML INJ VIAL ONE (16:42)
[2019-10-19] MEDS ORDERED: HALOPERIDOL LACTATE 5 MG/ML INJ VIAL IM ONE (16:45)
[2019-10-20] MEDS ORDERED: ALBUTEROL SULF 2.5 MG/0.5ML(0.5%) NEB SOLN NEB ONE ×2 (06:15→14:30)
[2019-10-20] MEDS ORDERED: IPRATROPIUM BROM 0.5 MG/2.5ML INH SOL NEB ONE (06:15)
[2019-10-20] MEDS: FOLIC ACID 1 MG, MULTIPLE VITAMIN 10 ML, MAGNESIUM SULF SDV 50% 8 MEQ, THIAMINE INJ 100... INJ SCH ×5 (16:21)
[2019-10-20] MEDS: QUEtiapine FUMARATE 100 MG TAB PO PRN (16:54)
[2019-10-20] MEDS ORDERED: LORazepam 0.5 MG TAB PO ONE (19:45)
[2019-10-20] MEDS ORDERED: KETOROLAC TROMETH 30 MG/ML 1ML VIAL IV ONE (19:45)
[2019-10-21] MEDS: QUEtiapine FUMARATE 100 MG TAB PO PRN ×3 (03:52→19:52)
[2019-10-21] MEDS ORDERED: IPRATROPIUM BROM 0.5 MG/2.5ML INH SOL NEB ONE ×2 (04:00→17:15)
[2019-10-21] MEDS ORDERED: ALBUTEROL SULF 2.5 MG/0.5ML(0.5%) NEB SOLN NEB ONE ×2 (04:00→17:15)
[2019-10-21] MEDS ORDERED: KETOROLAC TROMETH 60MG/2ML VIAL IM ONE (10:00)
[2019-10-21] MEDS: FOLIC ACID 1 MG, MULTIPLE VITAMIN 10 ML, MAGNESIUM SULF SDV 50% 8 MEQ, THIAMINE INJ 100... INJ SCH ×5 (12:00)
[2019-10-21] MEDS ORDERED: ACETAMINOPHEN 325 MG TAB PO ONE (17:15)
[2019-10-21] MEDS ORDERED: LORazepam 0.5 MG TAB PO ONE ×2 (22:00)
[2019-10-22 00:04] VITALS: BP 146/96
== END 2019-10-21 23:13 | disposition home or self-care (01) ==
LOC: EDBD 15:06 → ER 15:06
DX: G89.4 Chronic pain syndrome (principal); F32.9 Major depressive disorder, single episode, unspecified; F10.129 Alcohol abuse with intoxication, unspecified; F13.10 Sedative, hypnotic or anxiolytic abuse, uncomplicated; J45.909 Unspecified asthma, uncomplicated; K21.9 Gastro-esophageal reflux disease without esophagitis; Y90.9 Presence of alcohol in blood, level not specified
CPT/HCPCS: 36415; 71045; 80048; 80053; 80178; 80307; 80320; 80329; 81001; 83735; 85025; 87635; 93005; 94640; 96365; 96372; 96375; 96376; 99285; J1630; J1885; J2405; J3411; J3475; J7030; J7644; U0003